=== PATIENT | female | born 1990 | race Caucasian/White ===

== ENCOUNTER 2016-05-02 16:43 | Emergency (ER) | payer SELFPAY ==
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
== END 2016-05-02 19:04 | disposition home or self-care (01) ==
LOC: ER 16:43
DX: F07.81 Postconcussional syndrome (principal); G44.319 Acute post-traumatic headache, not intractable; M54.2 Cervicalgia; V40.5XXA Car driver injured in collision with pedestrian or animal in traffic accident, initial encounter
CPT/HCPCS: 70450; 72125; 99283